=== PATIENT | female | born 1930 | race American Indian/Alaskan Native ===

== ENCOUNTER 2016-07-09 13:25 | Emergency (ER) | payer MEDICARE ==
--- NOTE | 2016-07-09 14:23 | C.PDOC ---
History Of Present Illness A 85 year old female c/o new onset of lower gastrointestinal bleeding 2 days ago. Patient notes bright red blood per rectal 2 days ago with no stool, no associated abdominal pain, rectal pain, or external hemorrhoids. Patient reports no BRBPR yesterday and took OTC laxative and mg citrate. Patient notes having recurring BRBPR with brown stool this morning denying abdominal pain, rectal pain, peptic ulcer disease, or colitis. Patient is currently asymptomatic denying fever, chills, nausea, vomiting, trauma, vaginal bleeding or discharge. Patient is S/P ABx finished 3 days ago. Patient PMD advised her to come on 07/14 but patient notes "But i thought it was hemorrhoids so i thought it would go away". NEW ONSET LGIB SINCE 07/07. PS BRBPR 2 DAYS AGO, NO STOOL. NO ASSOC ABD PAIN, RECTAL PAIN. HO EXT HEMORRHOIDS. NO BRBPR YEST, TOOK OTC LAXATIVE AND MG CITRATE. TODAY RECUR BRBPR THIS MORNING W BROWN STOOL. NO ASSOC ABD, RECTAL PAIN. NO HO PUD, COLITIS. CURRENTLY ASYMPT. S/P ABX FINISHED 07/06 FOR "FLU". PS PMD ADVISED HER TO COME ON 07/14 "BUT I THOUGHT IT WAS HEMORRHOIDS SO I THOUGHT IT WOULD GO AWAY" EXAM NAD NONTOXIC HEENT NO PALLOR ABD NEG RECTAL +EXT HEMORRHOID NONTHROMBOSED, NONTEND. NO STOOL IN VAULT. NO GROSS BLODD REMAINDER NEG Time Seen by Provider: 07/09/16 13:58 Chief Complaint (Nursing): GI Problem History Per: Patient History/Exam Limitations: no limitations Onset/Duration Of Symptoms: Days Current Symptoms Are (Timing): Still Present Severity: Mild Associated Symptoms: Hematemesis. denies: Nausea, Vomiting Past Medical History Reviewed: Historical Data, Nursing Documentation, Vital Signs Vital Signs: Last Vital Signs Temp 98 F 07/09/16 15:45 Pulse 79 07/09/16 15:45 Resp 18 07/09/16 15:45 BP 190/75 H 07/09/16 15:45 Pulse Ox 99 07/09/16 15:45 - Medical History PMH: HTN, Hypercholesterolemia Surgical History: Appendectomy, Tonsillectomy Family History: States: Unknown Family Hx - Social History Hx Alcohol Use: No Hx Substance Use: No - Immunization History Hx Tetanus Toxoid Vaccination: Yes Hx Influenza Vaccination: Yes Hx Pneumococcal Vaccination: No Review Of Systems Except As Marked, All Systems Reviewed And Found Negative. Constitutional: Negative for: Fever, Chills, Other (Trauma) Gastrointestinal: Positive for: Other (BRBPR. GI bleeding.). Negative for: Nausea, Vomiting, Abdominal Pain, Rectal Pain Genitourinary: Negative for: Vaginal Discharge, Vaginal Bleeding Physical Exam - Physical Exam Appears: Non-toxic, No Acute Distress Skin: Warm, Dry, No Pale Head: Atraumatic, Normacephalic Eye(s): bilateral: Normal Inspection, PERRL, EOMI Cardiovascular: Rhythm Regular, No Murmur Respiratory: Normal Breath Sounds, No Rales, No Rhonchi, No Wheezing Gastrointestinal/Abdominal: Soft, No Tenderness Rectal: Hemorrhoids (+ External hemorrhoids, non-thrombosed. non-tenderness), No Tenderness, Other (No stool in vault. No gross bleeding) Neurological/Psych: Oriented x3, Normal Speech, Normal Cognition, No Other (No focal deficit) ED Course And Treatment - Laboratory Results Result Diagrams: 07/09/16 14:35 07/09/16 14:35 ECG: Interpreted By Tn ECG Rhythm: R BBB Interpretation Of ECG: TWI III, AVF, VS-V6 O2 Sat by Pulse Oximetry: 99 (RA) Pulse Ox Interpretation: Normal Reevaluation Time: 15:40 Reassessment Condition: Unchanged (NO RECUR LGIB SINCE PRIOR EVAL. VSS. APEPARS COMFORTABLE. AGREES W DC PLAN, FU OFFICE) - Physician Consult Information Time Consulting Physician Contacted: 15:39 Physician Contacted: Alondra Hernandez Outcome Of Conversation: AWARE OF ER FINDINGS. WILL FU OFFICE 07/13. Medical Decision Making Medical Decision Making: Plans: -EKG -Blood labs -IV fluids -Serology -Reassess and disposition Disposition Counseled Patient/Family Regarding: Studies Performed, Diagnosis, Need For Followup - Disposition Referrals: Alondra Hernandez MD [Staff Provider] - Disposition: HOME/ ROUTINE Disposition Time: 15:40 Condition: GOOD Instructions: Hemorrhoids (ED), Rectal Bleeding (ED) - Clinical Impression Clinical Impression: Rectal bleed, Hemorrhoids - Scribe Statement The provider has reviewed the documentation as recorded by the Scribe Wilfredo martinez All medical record entries made by the Scribe were at my direction and personally dictated by me. I have reviewed the chart and agree that the record accurately reflects my personal performance of the history, physical exam, medical decision making, and the department course for this patient. I have also personally directed, reviewed, and agree with the discharge instructions and disposition.
[2016-07-09 14:39] LABS: BASO % 0.5 % (0.0-2.0); EOS # 0.1 K/uL (0.0-0.7); EOS % 1.2 % (0.0-4.0); LYMPH % 22.7 % (20.0-40.0); MEAN CELL VOLUME 76.6 fL (81.0-99.0); MEAN CORPUSCULAR HEMOGLOBIN 24.4 pg (27.0-31.0); MEAN CORPUSCULAR HGB CONC 31.8 g/dL (33.0-37.0); MEAN PLATELET VOLUME 8.9 fL (7.2-11.7); MONO % 10.7 % (0.0-10.0); NRBC % 0.1 % (0.0-2.0); WHITE BLOOD COUNT 8.9 K/uL (4.8-10.8)
[2016-07-09 14:40] LABS: URINE BILIRUBIN NEGATIVE (NEGATIVE); URINE COLOR Colorless (YELLOW); URINE GLUCOSE (UA) NORMAL (Normal); URINE KETONE NEGATIVE (NEGATIVE); URINE LEUKOCYTE ESTERASE NEG Leu/uL (Negative); URINE PROTEIN NEGATIVE (NEGATIVE); URINE UROBILINOGEN NORMAL mg/dL (0.2-1.0); WBC URINE 1 /hpf (0-5)
[2016-07-09 14:54] VITALS: BP 190/75
[2016-07-09 14:54] LABS: CHLORIDE 102 mmol/L (98-107); POTASSIUM 3.6 mmol/L (3.6-5.2); SODIUM 142 mmol/L (132-148)
[2016-07-09 14:54] LABS: URINE BLOOD TRACE (NEGATIVE)
[2016-07-09 14:56] LABS: AST/SGOT 40 U/L (14-36); BILIRUBIN,TOTAL 0.7 mg/dL (0.2-1.3); CARBON DIOXIDE 31 mmol/L (22-30); GFR AFRICAN-AMERICAN > 60
[2016-07-09 14:57] LABS: ALB/GLOB RATIO 1.2 (1.0-2.1); ALKALINE PHOSPHATASE 78 U/L (38-126); ALT/SGPT 36 U/L (9-52); BLOOD UREA NITROGEN 12 mg/dL (7-17); CALCIUM 8.4 mg/dl (8.6-10.4); GLUCOSE,RANDOM 107 mg/dL (65-105); TOTAL PROTEIN 7.4 g/dL (6.3-8.3)
--- NOTE | 2016-07-09 15:11 | RAD ---
PROCEDURE: CHEST RADIOGRAPH, 1 VIEW portable study 14:50. HISTORY: GI Bleeding COMPARISON: 06/23/2012. FINDINGS: LUNGS: Clear. PLEURA: No pneumothorax or pleural fluid seen. CARDIOVASCULAR: Cardiomegaly. No evidence of acute, significant cardiovascular disease. OSSEOUS STRUCTURES: No significant abnormalities. VISUALIZED UPPER ABDOMEN: Normal. OTHER FINDINGS: None. IMPRESSION: No active disease. No acute/significant interval changes.
[2016-07-09 15:29] VITALS: O2SAT 99
[2016-07-09 15:45] VITALS: PULSE 79; RESP 18; TEMP 98
--- NOTE | 2016-07-12 07:43 | CARD ---
APPROVED REPORT EKG Measurement Heart [id number] <Conclusion> Wide QRS rhythm with premature ventricular complexes or fusion complexes Right bundle branch block T wave abnormality, consider inferolateral ischemia Abnormal ECG
== END 2016-07-09 15:47 | disposition home or self-care (01) ==
LOC: EDBD 13:25 → C.ER 13:25
DX: K62.5 Hemorrhage of anus and rectum (principal); K64.4 Residual hemorrhoidal skin tags

== ENCOUNTER 2016-07-10 14:21 | Inpatient (IN) | payer MEDICARE, OTHER ==
--- NOTE | 2016-07-10 15:12 | C.PDOC ---
History Of Present Illness 85-year-old female, PMHx includes Hypertension and Hypercholesterolemia, presents to the emergency department with complaints of GI bleed. Patient states she has been experiencing recurring GI bleed since 07/07. Patient notes she was seen in ED yesterday, and discharged with outpatient f/u, but returns today, because bleeding has worsened/become more frequent and is associated with lower abdominal cramping. Patient denies nausea/vomiting. States she called her doctor, who referred her to the ED for further evaluation and admission. Time Seen by Provider: 07/10/16 14:40 Chief Complaint (Nursing): GI Problem History Per: Patient History/Exam Limitations: no limitations Past Medical History Reviewed: Historical Data, Nursing Documentation, Vital Signs Vital Signs: Last Vital Signs Temp 98.1 F 07/10/16 14:36 Pulse 83 07/10/16 14:36 Resp 16 07/10/16 14:36 BP 220/101 H 07/10/16 14:36 Pulse Ox 99 07/10/16 15:49 - Medical History PMH: HTN, Hypercholesterolemia Surgical History: Appendectomy, Tonsillectomy Family History: States: Unknown Family Hx - Social History Hx Alcohol Use: No Hx Substance Use: No - Immunization History Hx Tetanus Toxoid Vaccination: Yes Hx Influenza Vaccination: Yes Hx Pneumococcal Vaccination: No Review Of Systems Except As Marked, All Systems Reviewed And Found Negative. Constitutional: Negative for: Fever, Chills Cardiovascular: Negative for: Chest Pain, Palpitations Respiratory: Negative for: Shortness of Breath Gastrointestinal: Positive for: Abdominal Pain (Cramping), Hematochezia. Negative for: Nausea, Vomiting, Rectal Pain Skin: Negative for: Rash Neurological: Negative for: Weakness, Numbness, Headache, Dizziness Physical Exam - Physical Exam Appears: Non-toxic, No Acute Distress Skin: Warm, Dry, No Pale, No Rash Head: Atraumatic, Normacephalic Eye(s): bilateral: Normal Inspection, PERRL Nose: Normal Oral Mucosa: Moist Lips: Normal Appearing Neck: Normal ROM Chest: Symmetrical Cardiovascular: Rhythm Regular Respiratory: Normal Breath Sounds, No Accessory Muscle Use Gastrointestinal/Abdominal: Soft, No Tenderness Extremity: Normal ROM Neurological/Psych: Oriented x3, Normal Speech ED Course And Treatment O2 Sat by Pulse Oximetry: 99 Progress - Re-Evaluation Re-evaluation Note: 07/10/16 15:22 D/W PMD: AWARE OF ER FINDINGS. UNABLE TO ADMIT PT DUE TO BEING AWARE, REQUESTS ADMISSION TO HOSP D/W DR CONNER. STATES TO ADMIT MED DIRECTOR INTERNAL COMMUNICATIONS D/W DR Dl RYAN: WILL ADMIT - Data Reviewed Data Reviewed: Lab, Old records Medical Decision Making Medical Decision Making: Impression Recurring GI Bleed Prior Visits Notes and records from previous visits were reviewed. Patient seen and evaluated in ED for same complaint yesterday. Patients labs were WNL, and she was discharged for outpatient f/u with PMD in office/asked to return for any new or worsening symptoms. Plan: * Type and Screen * BMP * CBC * Stool Culture * C Diff Toxin AB, Fecal Leukocytes * Reassess and Disposition Consult Case discussed w/ Dr Hernandez, [facility] to admit patient to hospitalists service. Disposition Counseled Patient/Family Regarding: Studies Performed, Diagnosis - Disposition Disposition: HOSPITALIZED Disposition Time: 15:25 Condition: STABLE - POA Present On Arrival: None - Clinical Impression Clinical Impression: GI bleed - Scribe Statement The provider has reviewed the documentation as recorded by the Patrick Cantu All medical record entries made by the Indyibe were at my direction and personally dictated by me. I have reviewed the chart and agree that the record accurately reflects my personal performance of the history, physical exam, medical decision making, and the department course for this patient. I have also personally directed, reviewed, and agree with the discharge instructions and disposition. Decision To Admit - Pt Status Changed To: Hospital Disposition Of: Inpatient - Admit Certification Admit to Inpatient:: After my assessment, the patient will require hospitalization for at least two midnights. This is because of the severity of symptoms shown, intensity of services needed, and/or the medical risk in this patient being treated as an outpatient. - InPatient: Physician Admission Certification: I certify that this patient requires 2 or more midnights of care for the following reason:: SEE NOTE - . Bed Request Type: Telemetry Admitting Physician: Anjum Ryan Patient Diagnosis: GI bleed
[2016-07-10 16:10] LABS: CHLORIDE 100 mmol/L (98-107); SODIUM 142 mmol/L (132-148)
[2016-07-10 16:11] LABS: POTASSIUM 3.7 mmol/L (3.6-5.2)
[2016-07-10 16:13] LABS: CARBON DIOXIDE 30 mmol/L (22-30); GFR AFRICAN-AMERICAN > 60
[2016-07-10 16:14] LABS: BLOOD UREA NITROGEN 13 mg/dL (7-17); CALCIUM 8.1 mg/dl (8.6-10.4); GLUCOSE,RANDOM 118 mg/dL (65-105)
[2016-07-10 16:20] LABS: BASO % 0.6 % (0.0-2.0); EOS # 0.1 K/uL (0.0-0.7); EOS % 1.6 % (0.0-4.0); HEMATOCRIT 38.5 % (34.0-47.0); LYMPH # 2.3 K/uL (1.0-4.3); LYMPH % 33.5 % (20.0-40.0); MEAN CELL VOLUME 76.2 fL (81.0-99.0); MEAN CORPUSCULAR HEMOGLOBIN 24.3 pg (27.0-31.0); MEAN CORPUSCULAR HGB CONC 31.8 g/dL (33.0-37.0); MEAN PLATELET VOLUME 9.3 fL (7.2-11.7); MONO # 0.9 K/uL (0.0-0.8); MONO % 12.6 % (0.0-10.0); NRBC % 0.1 % (0.0-2.0); RED CELL DISTRIBUTION WIDTH 16.6 % (11.5-14.5); WHITE BLOOD COUNT 6.8 K/uL (4.8-10.8)
[2016-07-10] MEDS ORDERED: Metoprolol Succinate 50 mg XL Tab PO STA (19:04)
[2016-07-10] MEDS ORDERED: Metoprolol Succinate 50 mg XL Tab PO ONE (19:20)
--- NOTE | 2016-07-10 20:42 | CP.PCM.HP ---
History of Present Illness - History of Present Illness History of Present Illness: 35 years old female patient with past medical history of hypertension hyperlipidemia presented to the emergency department with GI bleeding that is recurring since last few days. Patient presented with similar complaints yesterday and discharge with outpatient follow-up but today the bleeding has worsened and also having cramping pain in the lower abdomen. No fever nausea vomiting No shortness of breath, palpitation, dizziness Present on Admission - Present on Admission Any Indicators Present on Admission: No Past Patient History - Infectious Disease Hx of Infectious Diseases: None - Past Social History Smoking Status: Never Smoked - CARDIAC Hx Hypercholesterolemia: Yes Hx Hypertension: Yes - ENDOCRINE/METABOLIC Other/Comment: "OVERACTIVE THYROID TREATED WITH RADIATION" - PSYCHIATRIC Hx Substance Use: No - SURGICAL HISTORY Hx Appendectomy: Yes Hx Tonsillectomy: Yes - ANESTHESIA Hx Anesthesia: Yes Hx Anesthesia Reactions: No Meds Home Medications: Home Medication List Medication Instructions Recorded Confirmed Type Metronidazole [Flagyl] 500 mg PO Q8 #15 tab 07/15/16 Rx Potassium Chloride 20 meq PO DAILY #2 tablet.er 07/15/16 Rx Allergies/Adverse Reactions: Allergies Allergy/AdvReac Type Severity Reaction Status Date / Time diphenhydramine Allergy SWELLING Verified 07/10/16 14:35 [From Benadryl] Penicillins Allergy SWELLING Verified 07/10/16 14:35 Results - Vital Signs Recent Vital Signs: Last Vital Signs Temp 98.1 F 07/10/16 14:36 Pulse 68 07/10/16 20:09 Resp 20 07/10/16 20:09 BP 189/57 H 07/10/16 20:09 Pulse Ox 100 07/10/16 20:09 - Labs Result Diagrams: 07/13/16 06:08 07/15/16 14:14 Labs: Laboratory Results - last 24 hr 07/10/16 07/10/16 07/10/16 15:59 15:59 17:00 WBC 6.8 RBC 5.05 Hgb 12.3 Hct 38.5 MCV 76.2 L MCH 24.3 L MCHC 31.8 L RDW 16.6 H Plt Count 161 MPV 9.3 Neut % (Auto) 51.7 Lymph % (Auto) 33.5 [place] % (Auto) 12.6 H Eos % (Auto) 1.6 Baso % (Auto) 0.6 Neut # 3.5 Lymph # 2.3 [place] # 0.9 H Eos # 0.1 Baso # 0.0 Sodium 142 Potassium 3.7 Chloride 100 Carbon Dioxide 30 Anion Gap 15 BUN 13 Creatinine 0.9 Est GFR ( Amer) > 60 Est GFR (Non-Af Amer) 60 Random Glucose 118 H Calcium 8.1 L Blood Type O POSITIVE Antibody Screen Negative Assessment & Plan (1) Clostridium difficile colitis Status: Acute (2) Clostridium difficile colitis Status: Acute (3) GI bleed Status: Acute (4) Hemorrhoids Status: Acute (5) Rectal bleed Status: Acute - Assessment and Plan (Free Text) Plan: cbc cmp protnix will not give lovenox scd gi consult hydralazine prn hctz 25mg po daily an dtoprol
--- NOTE | 2016-07-11 08:04 | CP.PCM.CON ---
<Vonda Hagen - Last Filed: 07/11/16 17:15> History of Present Illness - History of Present Illness History of Present Illness: Gastroenterology Fellow/PGY4 Consult Note 85 year old female with history of Hypertension, Hyperlipidemia, Constipation, and Hemorrhoids presenting with concern of red blood in stool. Patient describes going to [place] via car ride for one week with change in diet to low fiber and water intake. She notes on the drive back that her hemorrhoids were irritated and uncomfortable as she had not had a bowel movement for a few days during the trip. She took antibiotics for five days after her return for "pneumonia". She took Mg citrate and Dulcolax due to not having a bowel movement for four days. She describes straining with hard stools leading to bright red blood on the stool and moderate amount mixed in the water causing a pink hue. She notes constipation (bowel habit every 3-4 days) with hemorrhoids for the last ten to fifteen years, chronic laxative use, and intermittent episodes of bright red blood in her stool. For the last three days, notes twice daily loose and soft bowel movements with incontinence since the laxative with second recurrence of small amount of blood in formed stool being yesterday. She contacted her PCP and was instructed to present to ER. She notes a loose bowel movement without blood since presentation and recurrent episode during exam. Associated belching, bloating, flatulence, and abdominal cramps that resolve after bowel movement. Denies nausea, heartburn, indigestion, melena, hematemesis , dysphagia, odynophagia, unintentional weight loss. Prior colonoscopy 9-10 years ago endorsed to be normal with hemorrhoids. Of note, patient endorses compliance to antihypertensive mediations and PCP visits. Endorsed average BP 140/60-70s. Notes elevated BP with stress. Family- denies colon cancer Social- denies tobacco, alcohol, illicit drug use Surgery- appendectomy, tonsillectomy, right knee replacement, radioactive iodine for Hyperthyroidism Review of Systems - Review of Systems Review of Systems: A 12-point review of systems negative except for as above Past Patient History - Infectious Disease Hx of Infectious Diseases: None - Past Medical History & Family History Past Medical History?: Yes - Past Social History Smoking Status: Never Smoked - CARDIAC Hx Cardiac Disorders: Yes Hx Hypercholesterolemia: Yes Hx Hypertension: Yes - PULMONARY Hx Respiratory Disorders: No - NEUROLOGICAL Hx Neurological Disorder: No - HEENT Hx HEENT Problems: Yes Other/Comment: EYE GLASSES FOR READING - RENAL Hx Chronic Kidney Disease: No - ENDOCRINE/METABOLIC Hx Endocrine Disorders: Yes Other/Comment: "OVERACTIVE THYROID TREATED WITH RADIATION" - HEMATOLOGICAL/ONCOLOGICAL Hx Blood Disorders: No - INTEGUMENTARY Hx Dermatological Problems: No - MUSCULOSKELETAL/RHEUMATOLOGICAL Hx Musculoskeletal Disorders: Yes Other/Comment: L KNEE REPALCEMENT - GASTROINTESTINAL Hx Gastrointestinal Disorders: No - GENITOURINARY/GYNECOLOGICAL Hx Genitourinary Disorders: No - PSYCHIATRIC Hx Psychophysiologic Disorder: No - SURGICAL HISTORY Hx Surgeries: Yes Hx Appendectomy: Yes Hx Tonsillectomy: Yes Other/Comment: L KNEE REPLACEMENT - ANESTHESIA Hx Anesthesia: Yes Hx Anesthesia Reactions: No Hx Malignant Hyperthermia: No Has any member of the family had a problem w/ anesthesia?: No Meds Allergies/Adverse Reactions: Allergies Allergy/AdvReac Type Severity Reaction Status Date / Time diphenhydramine Allergy SWELLING Verified 07/10/16 14:35 [From Benadryl] Penicillins Allergy SWELLING Verified 07/10/16 14:35 - Medications Medications: Current Medications Metoprolol Succinate (Toprol Xl) 50 mg PO DAILY [facility] Pantoprazole Sodium (Protonix Ec Tab) 40 mg PO DAILY [facility] Rosuvastatin Calcium (Crestor) 20 mg PO HS [facility] Last Admin: 07/11/16 07:32 Dose: Not Given Physical Exam - Constitutional Appears: Non-toxic, No Acute Distress - Head Exam Head Exam: ATRAUMATIC, NORMOCEPHALIC - Eye Exam Eye Exam: EOMI, PERRL Pupil Exam: PERRL. absent: Miosis, Mydriatic - ENT Exam ENT Exam: Mucous Membranes Moist, Normal Oropharynx - Neck Exam Neck exam: Positive for: Full Rom, Normal Inspection - Respiratory Exam Respiratory Exam: Clear to Auscultation Bilateral. absent: Rales, Rhonchi, Wheezes - Cardiovascular Exam Cardiovascular Exam: RRR, +S1, +S2. absent: Gallop, Rubs - GI/Abdominal Exam GI & Abdominal Exam: Normal Bowel Sounds. absent: Distended, Firm, Guarding, Organomegaly, Rebound, Rigid, Tenderness - Rectal Exam Rectal Exam: Hemorrhoids, NORMAL INSPECTION. absent: Black Stool, Bloody Stool , Fecal Impaction Additional comments: large amount of semi-liquid light brown stool on alexis and rectal vault, no fecal impaction, no stool present on rectal exam, moderate internal hemorrhoids , Grade I-II on exam) - Extremities Exam Extremities exam: Positive for: full ROM. Negative for: pedal edema - Neurological Exam Neurological exam: Alert - Psychiatric Exam Psychiatric exam: Normal Affect, Normal Mood - Skin Skin Exam: Dry, Intact, Normal Color, Warm Results - Vital Signs Recent Vital Signs: Last Vital Signs Temp 98.3 F 07/11/16 00:04 Pulse 76 07/11/16 01:21 Resp 18 07/11/16 01:09 BP 113/73 07/11/16 00:04 Pulse Ox 99 07/11/16 01:09 - Labs Result Diagrams: 07/11/16 08:03 07/11/16 08:03 Labs: Laboratory Results - last 24 hr 07/10/16 07/10/16 07/10/16 15:59 15:59 17:00 WBC 6.8 RBC 5.05 Hgb 12.3 Hct 38.5 MCV 76.2 L MCH 24.3 L MCHC 31.8 L RDW 16.6 H Plt Count 161 MPV 9.3 Neut % (Auto) 51.7 Lymph % (Auto) 33.5 [place] % (Auto) 12.6 H Eos % (Auto) 1.6 Baso % (Auto) 0.6 Neut # 3.5 Lymph # 2.3 [place] # 0.9 H Eos # 0.1 Baso # 0.0 Sodium 142 Potassium 3.7 Chloride 100 Carbon Dioxide 30 Anion Gap 15 BUN 13 Creatinine 0.9 Est GFR ( Amer) > 60 Est GFR (Non-Af Amer) 60 Random Glucose 118 H Calcium 8.1 L Blood Type O POSITIVE Antibody Screen Negative Assessment & Plan - Assessment and Plan (Free Text) Assessment: 85 year old female with history of Hypertension, Hyperlipidemia, Constipation, and Hemorrhoids presenting with concern of bright red blood per rectum. ER visit for hematochezia on 07/07 with diagnosis of hemorrhoids, FOBT negative,and stable H/H. Repeat hematochezia 07/10 leading to ER presentation. Active treatment of hypertensive urgency and evaluation of possible GI bleed. Prior colonoscopy 9-10 years ago endorsed to be normal with hemorrhoids. Plan: >constipation with BRBPR secondary to hemorrhoids >light brown loose stool and hemorrhoids on rectal exam >no overt signs of GI blood loss >FOBT negative 07/07 >H/H 13.2/40.9 >counselled on increased fiber intake >ordered Anusol RC suppositories BID >recurrent episodes of stool incontinence -recent antibiotic one week prior >pending Cdiff, stool culture, fecal leukocytes >no indication for endoscopic evaluation <Nathalia Herrmann MD - Last Filed: 07/11/16 21:13> Meds - Medications Medications: Current Medications Amlodipine Besylate (Norvasc) 10 mg PO DAILY [facility] Last Admin: 07/11/16 09:23 Dose: 10 mg Hydrochlorothiazide (Hydrodiuril) 25 mg PO DAILY [facility] Last Admin: 07/11/16 09:23 Dose: 25 mg Hydrocortisone (Anusol-Hc) 25 mg RC BID [facility] Last Admin: 07/11/16 17:59 Dose: 25 mg Metronidazole (Flagyl) 500 mg in 100 mls @ 100 mls/hr IVPB Q8H [facility] Last Admin: 07/11/16 15:58 Dose: 100 mls/hr Metoprolol Succinate (Toprol Xl) 50 mg PO DAILY [facility] Last Admin: 07/11/16 10:28 Dose: 50 mg Pantoprazole Sodium (Protonix Ec Tab) 40 mg PO DAILY [facility] Last Admin: 07/11/16 09:23 Dose: 40 mg Pneumococcal Polyvalent Vaccine (Pneumovax 23 Vaccine) 0.5 ml IM .ONCE ONE Stop: 07/13/16 10:01 Rosuvastatin Calcium (Crestor) 20 mg PO [facility] Last Admin: 07/11/16 07:32 Dose: Not Given Vancomycin HCl (Vancocin (Oral Or Rectal Use)) 250 mg PO QID [facility] Last Admin: 07/11/16 17:36 Dose: 250 mg Results - Vital Signs Recent Vital Signs: Last Vital Signs Temp 98.8 F 07/11/16 20:00 Pulse 72 07/11/16 20:00 Resp 19 07/11/16 20:00 BP 170/90 H 07/11/16 20:00 Pulse Ox 100 07/11/16 20:00 - Labs Result Diagrams: 07/11/16 08:03 07/11/16 08:03 Labs: Laboratory Results - last 24 hr 07/11/16 07/11/16 07/11/16 08:03 08:03 08:03 WBC 10.2 RBC 5.39 H Hgb 13.2 Hct 40.9 MCV 75.8 L MCH 24.5 L MCHC 32.4 L RDW 16.5 H Plt Count 199 MPV 9.2 Neut % (Auto) 74.2 Lymph % (Auto) 14.0 L [place] % (Auto) 10.9 H Eos % (Auto) 0.4 Baso % (Auto) 0.5 Neut # 7.5 H Lymph # 1.4 [place] # 1.1 H Eos # 0.0 Baso # 0.1 PT 11.5 INR 1.0 Sodium 141 Potassium 3.6 Chloride 100 Carbon Dioxide 29 Anion Gap 16 BUN 10 Creatinine 0.8 Est GFR ( Amer) > 60 Est GFR (Non-Af Amer) > 60 Random Glucose 119 H Calcium 8.1 L Total Bilirubin 1.1 AST 46 H ALT 25 Alkaline Phosphatase 68 Total Protein 7.3 Albumin 3.9 Globulin 3.5 Albumin/Globulin Ratio 1.1 Attending/Attestation - Attestation I have personally seen and examined this patient.: Yes I have fully participated in the care of the patient.: Yes I have reviewed all pertinent clinical information: Yes Notes (Text): 07/11/16 21:11 Patient seen with GI fellow on rounds. This is a 85 year old female with history of Hypertension, Hyperlipidemia, Constipation, and Hemorrhoids presenting with concern of bright red blood per rectum and hypertensive urgency. FOBT negative,and stable H/H. Prior colonoscopy 9-10 years ago endorsed to be normal with hemorrhoids. No s/s of rectal bleeding since admission. Will aggressively treat constipation. Bowel regimen. No endoscopic intervention. Discussed with MICU and daughter.
[2016-07-11 08:11] LABS: BASO # 0.1 K/uL (0.0-0.2); BASO % 0.5 % (0.0-2.0); EOS % 0.4 % (0.0-4.0); HEMATOCRIT 40.9 % (34.0-47.0); LYMPH # 1.4 K/uL (1.0-4.3); MEAN CELL VOLUME 75.8 fL (81.0-99.0); MEAN CORPUSCULAR HEMOGLOBIN 24.5 pg (27.0-31.0); MEAN CORPUSCULAR HGB CONC 32.4 g/dL (33.0-37.0); MEAN PLATELET VOLUME 9.2 fL (7.2-11.7); MONO # 1.1 K/uL (0.0-0.8); MONO % 10.9 % (0.0-10.0); NRBC % 0.1 % (0.0-2.0); RED CELL DISTRIBUTION WIDTH 16.5 % (11.5-14.5); WHITE BLOOD COUNT 10.2 K/uL (4.8-10.8)
[2016-07-11 08:23] LABS: CHLORIDE 100 mmol/L (98-107); POTASSIUM 3.6 mmol/L (3.6-5.2); SODIUM 141 mmol/L (132-148)
[2016-07-11 08:25] LABS: ALB/GLOB RATIO 1.1 (1.0-2.1); ALKALINE PHOSPHATASE 68 U/L (38-126); AST/SGOT 46 U/L (14-36); BILIRUBIN,TOTAL 1.1 mg/dL (0.2-1.3); CARBON DIOXIDE 29 mmol/L (22-30); GFR AFRICAN-AMERICAN > 60; TOTAL PROTEIN 7.3 g/dL (6.3-8.3)
[2016-07-11 08:26] LABS: ALT/SGPT 25 U/L (9-52); BLOOD UREA NITROGEN 10 mg/dL (7-17); CALCIUM 8.1 mg/dl (8.6-10.4); GLUCOSE,RANDOM 119 mg/dL (65-105)
[2016-07-11] MEDS: Pantoprazole 40 mg EC Tab PO SCH (09:23)
[2016-07-11] MEDS: Metoprolol Succinate 50 mg XL Tab PO SCH (10:28)
[2016-07-11 12:40] LABS: C DIFF TOXIN A B POSITIVE (NEGATIVE)
[2016-07-11 13:44] LABS: FECAL LEUKOCYTES NEGATIVE (NEGATIVE)
--- NOTE | 2016-07-11 14:13 | CP.PCM.PN ---
Subjective - Date & Time of Evaluation Date of Evaluation: 07/11/16 Time of Evaluation: 16:40 - Subjective Subjective: clinically same Objective - Vital Signs/Intake and Output Vital Signs (last 24 hours): Temp Pulse Resp BP Pulse Ox 97.2 F L 64 21 163/55 H 100 07/11/16 12:00 07/11/16 12:00 07/11/16 12:00 07/11/16 12:00 07/11/16 12:00 Intake and Output: 07/11/16 07/11/16 06:59 18:59 Intake Total 118 250 Balance 118 250 - Medications Medications: Current Medications Amlodipine Besylate (Norvasc) 10 mg PO DAILY [facility] Last Admin: 07/11/16 09:23 Dose: 10 mg Hydrochlorothiazide (Hydrodiuril) 25 mg PO DAILY [facility] Last Admin: 07/11/16 09:23 Dose: 25 mg Hydrocortisone (Anusol-Hc) 25 mg RC BID [facility] Last Admin: 07/11/16 09:36 Dose: 25 mg Metoprolol Succinate (Toprol Xl) 50 mg PO DAILY [facility] Last Admin: 07/11/16 10:28 Dose: 50 mg Pantoprazole Sodium (Protonix Ec Tab) 40 mg PO DAILY [facility] Last Admin: 07/11/16 09:23 Dose: 40 mg Pneumococcal Polyvalent Vaccine (Pneumovax 23 Vaccine) 0.5 ml IM .ONCE ONE Stop: 07/13/16 10:01 Rosuvastatin Calcium (Crestor) 20 mg PO [facility] Last Admin: 07/11/16 07:32 Dose: Not Given - Labs Labs: 07/11/16 08:03 07/11/16 08:03 PT 11.5 SECONDS (9.7-12.2) 07/11/16 08:03 INR 1.0 07/11/16 08:03 - Constitutional Appears: Well - Head Exam Head Exam: ATRAUMATIC, NORMAL INSPECTION, NORMOCEPHALIC - Eye Exam Eye Exam: EOMI, Normal appearance, PERRL Pupil Exam: NORMAL ACCOMODATION, PERRL - ENT Exam ENT Exam: Mucous Membranes Moist, Normal Exam - Neck Exam Neck Exam: Full ROM, Normal Inspection. absent: Lymphadenopathy - Respiratory Exam Respiratory Exam: Decreased Breath Sounds - Cardiovascular Exam Cardiovascular Exam: REGULAR RHYTHM, +S1, +S2 - GI/Abdominal Exam GI & Abdominal Exam: Soft, Diminished Bowel Sounds - Rectal Exam Rectal Exam: Deferred Assessment and Plan (1) Clostridium difficile colitis Status: Acute (2) Clostridium difficile colitis Status: Acute (3) GI bleed Status: Acute (4) Hemorrhoids Status: Acute (5) Rectal bleed Status: Acute - Assessment and Plan (Free Text) Plan: Consult GI Consult ID Amlodipine Hydrodiuril Flagyl Toprol Vancomycin Protonix Crestor Stool culture pending
[2016-07-11] MEDS: metroNIDAZOLE IV 500 mg/100 ml 500 MG/100 ML BAG IVPB SCH ×2 (15:58→23:55)
[2016-07-11] MEDS: Vancomycin 125 MG/5 ML SOLN (ORAL/RECTAL) PO SCH ×2 (17:36→21:49)
[2016-07-12 06:11] LABS: BASO # 0.1 K/uL (0.0-0.2); BASO % 0.7 % (0.0-2.0); EOS # 0.2 K/uL (0.0-0.7); EOS % 2.3 % (0.0-4.0); HEMATOCRIT 37.6 % (34.0-47.0); LYMPH # 1.7 K/uL (1.0-4.3); LYMPH % 21.4 % (20.0-40.0); MEAN CELL VOLUME 75.6 fL (81.0-99.0); MEAN CORPUSCULAR HEMOGLOBIN 24.3 pg (27.0-31.0); MEAN CORPUSCULAR HGB CONC 32.1 g/dL (33.0-37.0); MEAN PLATELET VOLUME 8.9 fL (7.2-11.7); MONO # 1.1 K/uL (0.0-0.8); NRBC % 0.1 % (0.0-2.0); RED CELL DISTRIBUTION WIDTH 16.3 % (11.5-14.5)
[2016-07-12] MEDS: metroNIDAZOLE IV 500 mg/100 ml 500 MG/100 ML BAG IVPB SCH ×2 (08:05→16:18)
[2016-07-12] MEDS: Metoprolol Succinate 50 mg XL Tab PO SCH (09:51)
[2016-07-12] MEDS: Pantoprazole 40 mg EC Tab PO SCH (09:52)
[2016-07-12] MEDS: Vancomycin 125 MG/5 ML SOLN (ORAL/RECTAL) PO SCH ×4 (09:52→22:02)
--- NOTE | 2016-07-12 10:28 | CP.PCM.CON ---
History of Present Illness - History of Present Illness History of Present Illness: 85-year-old female, PMHx includes Hypertension and Hypercholesterolemia, presents to the emergency department with complaints of GI bleed. On admission stool sent for c diff came back + for antigen and toxin + Hx hemorrhoids started empirically on rx for c diff - Medical History Family- denies colon cancer Social- denies tobacco, alcohol, illicit drug use Surgery- appendectomy, tonsillectomy, right knee replacement, radioactive iodine for Hyperthyroidism PMH: HTN, Hypercholesterolemia Surgical History: Appendectomy, Tonsillectomy Family History: States: Unknown Family Hx Review of Systems - Review of Systems All systems: reviewed and no additional remarkable complaints except - Constitutional Constitutional: Anorexia, Malaise - EENT Eyes: absent: As Per HPI, Blind Spots, Blurred Vision, Change in Vision, Decreased Night Vision, Diplopia, Discharge, Dry Eye, Exophthalmos, Floaters, Irritation, Itchy Eyes, Loss of Peripheral Vision, Pain, Photophobia, Requires Corrective Lenses, Sees Flashes, Spots in Vision, Tunnel Vision, Other Visual Disturbances, Loss of Vision, Other Ears: absent: As Per HPI, Decreased Hearing, Ear Discharge, Ear Pain, Tinnitus, Abnormal Hearing, Disequilibrium, Dizziness, Other Nose/Mouth/Throat: absent: As Per HPI, Epistaxis, Nasal Congestion, Nasal Discharge, Nasal Obstruction, Nasal Trauma, Nose Pain, Post Nasal Drip, Sinus Pain, Sinus Pressure, Bleeding Gums, Change in Voice, Dental Pain, Dry Mouth, Dysphagia, Halitosis, Hoarsness, Lip Swelling, Mouth Lesions, Mouth Pain, Odynophagia, Sore Throat, Throat Swelling, Tongue Swelling, Facial Pain, Neck Pain, Neck Mass, Other - Breasts Breasts: absent: As Per HPI, Change in Shape, Mass, Pain, Nipple Discharge, Nipple Inversion, Skin Changes, Swelling, Other - Cardiovascular Cardiovascular: absent: As Per HPI, Acrocyanosis, Chest Pain, Chest Pain at Rest , Chest Pain with Activity, Claudication, Diaphoresis, Dyspnea, Dyspnea on Exertion, Edema, Irregular Heart Rhythm, Pain Radiating to Arm/Neck/Jaw, Leg Edema, Leg Ulcers, Lightheadedness, Orthopnea, Palpitations, Paroxysmal Nocturnal Dyspnea, Pedal Edema, Radiating Pain, Rapid Heart Rate, Slow Heart Rate, Syncope, Other - Respiratory Respiratory: absent: As Per HPI, Cough, Dyspnea, Hemoptysis, Dyspnea on Exertion , Wheezing, Snoring, Stridor, Pain on Inspiration, Chest Congestion, Excessive Mucous Production, Change in Mucous Color, Pain with Coughing, Other - Gastrointestinal Gastrointestinal: As Per HPI - Genitourinary Genitourinary: absent: As Per HPI, Change in Urinary Stream, Difficulty Urinating, Dysuria, Flank Pain, Hematuria, Pyuria, Nocturia, Urinary Incontinence, Urinary Frequency, Urinary Hesitance, Urinary Urgency, Voiding Freq/Small Amts, Freq UTI, Hx Renal/Bladder Calculi, Hx /Renal Surgery, Bladder Distension, Other - Reproductive: Female Reproductive:Female: absent: As Per HPI, Amenorrhea, Amenorrhea/ Control, Currently Menstual, Cycle <21 Days, Cycle >35 Days, Cycle Variable, Menses 1-7 Days, Menses >/= 8 Days, Menses Variable, Cycle > 4 Weeks Between, No Menses for 6 Months, Heavy Menses, Light Menses, Normal Menses, Spotting Between Cycles , S/P Hysterectomy, Menopausal, Post Menopausal, Premenarche, Abnormal Vaginal Bleeding, Dysmenorrhea, Dyspareunia, Genital Lesions, Genital Pruritis, Pelvic Pain, Prolapse Symptoms, Sexual Dysfunction, Vaginal Discharge, Vaginal Dryness , Vaginal Odor, Vaginal Pruritis, Other - Menstruation Menstruation: absent: As Per HPI, Amenorrhea, Amenorrhea/ Control, Currently Menstual, Cycle <21 Days, Cycle >35 Days, Cycle Variable, Menses 1-7 Days, Menses >/= 8 Days, Menses Variable, Cycle > 4 Weeks Between, No Menses for 6 Months, Heavy Menses, Light Menses, Normal Menses, Spotting Between Cycles , S/P Hysterectomy, Menopausal, Post Menopausal, Premenarche, Abnormal Vaginal Bleeding, Dysmenorrhea, Other - Musculoskeletal Musculoskeletal: absent: As Per HPI, Abnormal Gait, Arthralgias, Atrophy, Back Pain, Deformity, Joint Swelling, Limited Range of Motion, Loss of Height, Muscle Cramps, Muscle Weakness, Myalgias, Neck Pain, Numbness, Radiating Pain into Limb, Stiffness, Tingling, Other - Integumentary Integumentary: absent: As Per HPI, Acne, Alopecia, Bleeding Lesions, Change in Hair, Change in Nails, Change in Pigmentation, Changing Lesions, Dry Skin, Erythema, Furuncle, Hirsutism, Lesions, New Lesions, Non-Healing Lesions, Photosensitivity, Pruritus, Rash, Skin Pain, Skin Ulcer, Sores, Striae, Swelling , Unusual Bruising, Wounds, Jaundice, Other - Neurological Neurological: absent: As Per HPI, Abnormal Gait, Abnormal Hearing, Abnormal Movements, Abnormal Speech, Behavioral Changes, Burning Sensations, Confusion, Convulsions, Disequilibrium, Dizziness, Numbness, Focal Weakness, Frequent Falls , Headaches, Lack of Coordination, Loss of Vision, Memory Loss, Paresthesias, Radicular Pain, Restless Legs, Sensory Deficit, Syncope, Tingling, Tremor, Vertigo, Weakness, Other Visual Disturbances, Other - Psychiatric Psychiatric: absent: As Per HPI, Abnormal Sleep Pattern, Anhedonia, Anxiety, Auditory Hallucinations, Behavioral Changes, Change in Appetite, Change in Libido, Confusion, Depression, Difficulty Concentrating, Hallucinations, Homicidal Ideation, Hopelessness, Irritability, Memory Loss, Mood Swings, Panic Attacks, Paranoia, Suicidal Ideation, Visual Hallucinations, Tactile Hallucinations, Other - Endocrine Endocrine: absent: As Per HPI, Change in Body Appearance, Change in Libido, Cold Intolorance, Deepening of Voice, Excessive Sweating, Fatigue, Flushing, Heat Intolorance, Increase in Ring/Shoe/Hat Size, Palpitations, Polydipsia, Polyphagia, Polyuria, Other - Hematologic/Lymphatic Hematologic: absent: As Per HPI, Easy Bleeding, Easy Bruising, Lymphadenopathy, Other Past Patient History - Infectious Disease Hx of Infectious Diseases: None - Past Medical History & Family History Past Medical History?: Yes - Past Social History Smoking Status: Never Smoked - CARDIAC Hx Cardiac Disorders: Yes Hx Hypercholesterolemia: Yes Hx Hypertension: Yes - PULMONARY Hx Respiratory Disorders: No - NEUROLOGICAL Hx Neurological Disorder: No - HEENT Hx HEENT Problems: Yes Other/Comment: EYE GLASSES FOR READING - RENAL Hx Chronic Kidney Disease: No - ENDOCRINE/METABOLIC Hx Endocrine Disorders: Yes Other/Comment: "OVERACTIVE THYROID TREATED WITH RADIATION" - HEMATOLOGICAL/ONCOLOGICAL Hx Blood Disorders: No - INTEGUMENTARY Hx Dermatological Problems: No - MUSCULOSKELETAL/RHEUMATOLOGICAL Hx Musculoskeletal Disorders: Yes Other/Comment: L KNEE REPALCEMENT - GASTROINTESTINAL Hx Gastrointestinal Disorders: No - GENITOURINARY/GYNECOLOGICAL Hx Genitourinary Disorders: No - PSYCHIATRIC Hx Psychophysiologic Disorder: No - SURGICAL HISTORY Hx Surgeries: Yes Hx Appendectomy: Yes Hx Tonsillectomy: Yes Other/Comment: L KNEE REPLACEMENT - ANESTHESIA Hx Anesthesia: Yes Hx Anesthesia Reactions: No Hx Malignant Hyperthermia: No Has any member of the family had a problem w/ anesthesia?: No Meds Allergies/Adverse Reactions: Allergies Allergy/AdvReac Type Severity Reaction Status Date / Time diphenhydramine Allergy SWELLING Verified 07/10/16 14:35 [From Benadryl] Penicillins Allergy SWELLING Verified 07/10/16 14:35 - Medications Medications: Current Medications Amlodipine Besylate (Norvasc) 10 mg PO DAILY [facility] Last Admin: 07/12/16 09:51 Dose: 10 mg Hydrochlorothiazide (Hydrodiuril) 25 mg PO DAILY [facility] Last Admin: 07/11/16 09:23 Dose: 25 mg Hydrocortisone (Anusol-Hc) 25 mg RC BID [facility] Last Admin: 07/12/16 10:19 Dose: 25 mg Metronidazole (Flagyl) 500 mg in 100 mls @ 100 mls/hr IVPB Q8H [facility] Last Admin: 07/12/16 08:05 Dose: 100 mls/hr Metoprolol Succinate (Toprol Xl) 50 mg PO DAILY [facility] Last Admin: 07/12/16 09:51 Dose: 50 mg Pantoprazole Sodium (Protonix Ec Tab) 40 mg PO DAILY [facility] Last Admin: 07/12/16 09:52 Dose: 40 mg Pneumococcal Polyvalent Vaccine (Pneumovax 23 Vaccine) 0.5 ml IM .ONCE ONE Stop: 07/13/16 10:01 Rosuvastatin Calcium (Crestor) 20 mg PO HS [facility] Last Admin: 07/11/16 21:50 Dose: 20 mg Vancomycin HCl (Vancocin (Oral Or Rectal Use)) 250 mg PO QID [facility] Last Admin: 07/12/16 09:52 Dose: 250 mg Physical Exam - Constitutional Appears: Non-toxic, Chronically Ill - Head Exam Head Exam: NORMOCEPHALIC - Eye Exam Eye Exam: PERRL. absent: Scleral icterus - ENT Exam ENT Exam: Mucous Membranes Dry, Normal External Ear Exam, Normal Oropharynx - Neck Exam Neck exam: Negative for: Lymphadenopathy, Thyromegaly - Respiratory Exam Respiratory Exam: Decreased Breath Sounds, Clear to Auscultation Bilateral - Cardiovascular Exam Cardiovascular Exam: REGULAR RHYTHM, +S1, +S2 - GI/Abdominal Exam GI & Abdominal Exam: Diminished Bowel Sounds, Soft. absent: Tenderness - Rectal Exam Rectal Exam: Deferred - Exam Exam: NORMAL INSPECTION - Extremities Exam Extremities exam: Negative for: calf tenderness, pedal edema - Back Exam Back exam: absent: CVA tenderness (L), CVA tenderness (R) - Neurological Exam Neurological exam: Alert, CN II-XII Intact, Oriented x3, Reflexes Normal - Psychiatric Exam Psychiatric exam: Normal Mood - Skin Skin Exam: Dry, Intact Results - Vital Signs Recent Vital Signs: Last Vital Signs Temp 97.5 F L 07/12/16 08:00 Pulse 64 07/12/16 09:43 Resp 21 07/12/16 09:43 BP 143/61 07/12/16 09:43 Pulse Ox 98 07/12/16 07:42 - Labs Result Diagrams: 07/12/16 06:04 07/11/16 08:03 Labs: Laboratory Results - last 24 hr 07/12/16 06:04 WBC 8.0 RBC 4.98 Hgb 12.1 Hct 37.6 MCV 75.6 L MCH 24.3 L MCHC 32.1 L RDW 16.3 H Plt Count 178 MPV 8.9 Neut % (Auto) 61.6 Lymph % (Auto) 21.4 Butler % (Auto) 14.0 H Eos % (Auto) 2.3 Baso % (Auto) 0.7 Neut # 4.9 Lymph # 1.7 Butler # 1.1 H Eos # 0.2 Baso # 0.1 Assessment & Plan (1) Hemorrhoids Status: Acute (2) Rectal bleed Status: Acute - Assessment and Plan (Free Text) Assessment: + cd iff toxin and antigrn consider PCR test GI on board cont rx
--- NOTE | 2016-07-12 16:21 | CP.PCM.PN ---
Subjective - Date & Time of Evaluation Date of Evaluation: 07/12/16 Time of Evaluation: 17:00 - Subjective Subjective: clinically same Objective - Vital Signs/Intake and Output Vital Signs (last 24 hours): Temp Pulse Resp BP Pulse Ox 97.0 F L 64 24 147/55 L 98 07/12/16 12:56 07/12/16 14:00 07/12/16 14:00 07/12/16 13:43 07/12/16 12:00 Intake and Output: 07/12/16 07/12/16 06:59 18:59 Intake Total 240 100 Output Total 400 Balance -160 100 - Medications Medications: Current Medications Acetaminophen (Tylenol 325mg Tab) 650 mg PO Q6 PRN PRN Reason: Pain, Mild (1-3) Last Admin: 07/12/16 11:56 Dose: 650 mg Amlodipine Besylate (Norvasc) 10 mg PO DAILY [facility] Last Admin: 07/12/16 09:51 Dose: 10 mg Hydrochlorothiazide (Hydrodiuril) 25 mg PO DAILY [facility] Last Admin: 07/12/16 10:43 Dose: 25 mg Hydrocortisone (Anusol-Hc) 25 mg RC BID [facility] Last Admin: 07/12/16 10:19 Dose: 25 mg Metronidazole (Flagyl) 500 mg in 100 mls @ 100 mls/hr IVPB Q8H [facility] Last Admin: 07/12/16 16:18 Dose: 100 mls/hr Metoprolol Succinate (Toprol Xl) 50 mg PO DAILY [facility] Last Admin: 07/12/16 09:51 Dose: 50 mg Pantoprazole Sodium (Protonix Ec Tab) 40 mg PO DAILY [facility] Last Admin: 07/12/16 09:52 Dose: 40 mg Pneumococcal Polyvalent Vaccine (Pneumovax 23 Vaccine) 0.5 ml IM .ONCE ONE Stop: 07/13/16 10:01 Rosuvastatin Calcium (Crestor) 20 mg PO HS [facility] Last Admin: 07/11/16 21:50 Dose: 20 mg Vancomycin HCl (Vancocin (Oral Or Rectal Use)) 250 mg PO QID [facility] Last Admin: 07/12/16 13:16 Dose: 250 mg - Labs Labs: 07/12/16 06:04 07/11/16 08:03 PT 11.5 SECONDS (9.7-12.2) 07/11/16 08:03 INR 1.0 07/11/16 08:03 - Constitutional Appears: Well - Head Exam Head Exam: ATRAUMATIC, NORMAL INSPECTION, NORMOCEPHALIC - Eye Exam Eye Exam: EOMI, Normal appearance, PERRL Pupil Exam: NORMAL ACCOMODATION, PERRL - ENT Exam ENT Exam: Mucous Membranes Moist, Normal Exam - Neck Exam Neck Exam: Full ROM, Normal Inspection. absent: Lymphadenopathy - Respiratory Exam Respiratory Exam: Decreased Breath Sounds - Cardiovascular Exam Cardiovascular Exam: REGULAR RHYTHM, +S1, +S2 - GI/Abdominal Exam GI & Abdominal Exam: Soft, Diminished Bowel Sounds - Rectal Exam Rectal Exam: Deferred Assessment and Plan (1) Clostridium difficile colitis Status: Acute (2) Clostridium difficile colitis Status: Acute (3) GI bleed Status: Acute (4) Hemorrhoids Status: Acute (5) Rectal bleed Status: Acute - Assessment and Plan (Free Text) Plan: Follow-up ID Follow-up GI Stool culture positive for C diff Continue Flagyl Continue vancomycin Protonix
[2016-07-13] MEDS: metroNIDAZOLE IV 500 mg/100 ml 500 MG/100 ML BAG IVPB SCH ×4 (00:24→23:53)
[2016-07-13 06:16] LABS: BASO % 0.6 % (0.0-2.0); EOS # 0.2 K/uL (0.0-0.7); EOS % 2.2 % (0.0-4.0); HEMATOCRIT 36.1 % (34.0-47.0); LYMPH % 26.1 % (20.0-40.0); MEAN CELL VOLUME 75.7 fL (81.0-99.0); MEAN CORPUSCULAR HEMOGLOBIN 24.3 pg (27.0-31.0); MEAN CORPUSCULAR HGB CONC 32.2 g/dL (33.0-37.0); MEAN PLATELET VOLUME 8.8 fL (7.2-11.7); MONO # 1.3 K/uL (0.0-0.8); MONO % 17.1 % (0.0-10.0); NRBC % 0.1 % (0.0-2.0); WHITE BLOOD COUNT 7.6 K/uL (4.8-10.8)
[2016-07-13] MEDS: Vancomycin 125 MG/5 ML SOLN (ORAL/RECTAL) PO SCH ×4 (09:28→21:53)
[2016-07-13] MEDS: Pantoprazole 40 mg EC Tab PO SCH (09:28)
[2016-07-13] MEDS: Metoprolol Succinate 50 mg XL Tab PO SCH (09:28)
[2016-07-13] MEDS: Pneumococcal 23-Valent Vaccine IM ONE ×2 (09:29→10:05)
--- NOTE | 2016-07-13 16:10 | CP.PCM.PN ---
Subjective - Date & Time of Evaluation Date of Evaluation: 07/13/16 Time of Evaluation: 10:00 - Subjective Subjective: ADMITTED WITH C DIFF WAS TAKING CIPRO FOR THE FLU X 7 DAYS DEVGELOPED SEVERE C DIFF' Objective - Vital Signs/Intake and Output Vital Signs (last 24 hours): Temp Pulse Resp BP Pulse Ox 97.1 F L 68 28 H 143/72 100 07/13/16 12:00 07/13/16 12:02 07/13/16 12:02 07/13/16 12:03 07/13/16 08:00 Intake and Output: 07/13/16 07/13/16 06:59 18:59 Output Total 200 Balance -200 - Medications Medications: Current Medications Acetaminophen (Tylenol 325mg Tab) 650 mg PO Q6 PRN PRN Reason: Pain, Mild (1-3) Last Admin: 07/12/16 18:01 Dose: 650 mg Alprazolam (Xanax) 0.25 mg PO HS PRN PRN Reason: Anxiety Stop: 07/19/16 20:55 Last Admin: 07/12/16 22:00 Dose: 0.25 mg Amlodipine Besylate (Norvasc) 10 mg PO DAILY [facility] Last Admin: 07/13/16 09:28 Dose: 10 mg Hydrochlorothiazide (Hydrodiuril) 25 mg PO DAILY [facility] Last Admin: 07/13/16 09:26 Dose: 25 mg Hydrocortisone (Anusol-Hc) 25 mg RC BID [facility] Last Admin: 07/13/16 09:26 Dose: 25 mg Metronidazole (Flagyl) 500 mg in 100 mls @ 100 mls/hr IVPB Q8H [facility] Last Admin: 07/13/16 15:04 Dose: 100 mls/hr Ibuprofen (Motrin Tab) 400 mg PO Q12 [facility] Last Admin: 07/13/16 09:26 Dose: 400 mg Metoprolol Succinate (Toprol Xl) 50 mg PO DAILY [facility] Last Admin: 07/13/16 09:28 Dose: 50 mg Pantoprazole Sodium (Protonix Ec Tab) 40 mg PO DAILY [facility] Last Admin: 07/13/16 09:28 Dose: 40 mg Rosuvastatin Calcium (Crestor) 20 mg PO HS [facility] Last Admin: 07/12/16 22:00 Dose: 20 mg Vancomycin HCl (Vancocin (Oral Or Rectal Use)) 250 mg PO QID [facility] Last Admin: 07/13/16 13:05 Dose: 250 mg - Labs Labs: 07/13/16 06:08 07/11/16 08:03 PT 11.5 SECONDS (9.7-12.2) 07/11/16 08:03 INR 1.0 07/11/16 08:03 - Constitutional Appears: Non-toxic, Cachectic, Chronically Ill - Head Exam Head Exam: NORMOCEPHALIC - Eye Exam Eye Exam: PERRL. absent: Scleral icterus - ENT Exam ENT Exam: Mucous Membranes Dry - Neck Exam Neck Exam: absent: Lymphadenopathy - Respiratory Exam Respiratory Exam: Decreased Breath Sounds - Cardiovascular Exam Cardiovascular Exam: REGULAR RHYTHM - GI/Abdominal Exam GI & Abdominal Exam: Distended, Soft. absent: Tenderness - Rectal Exam Rectal Exam: Deferred - Extremities Exam Extremities Exam: absent: Calf Tenderness, Pedal Edema Assessment and Plan (1) Hemorrhoids Status: Acute (2) Rectal bleed Status: Acute (3) Clostridium difficile colitis Status: Acute (4) Clostridium difficile colitis Status: Acute
--- NOTE | 2016-07-13 18:19 | CP.PCM.PN ---
Subjective - Date & Time of Evaluation Date of Evaluation: 07/13/16 Time of Evaluation: 15:20 - Subjective Subjective: clinically same Objective - Vital Signs/Intake and Output Vital Signs (last 24 hours): Temp Pulse Resp BP Pulse Ox 97.7 F 63 32 H 126/66 100 07/13/16 16:00 07/13/16 16:14 07/13/16 16:14 07/13/16 16:14 07/13/16 08:00 Intake and Output: 07/13/16 07/13/16 06:59 18:59 Output Total 200 Balance -200 - Medications Medications: Current Medications Acetaminophen (Tylenol 325mg Tab) 650 mg PO Q6 PRN PRN Reason: Pain, Mild (1-3) Last Admin: 07/12/16 18:01 Dose: 650 mg Alprazolam (Xanax) 0.25 mg PO HS PRN PRN Reason: Anxiety Stop: 07/19/16 20:55 Last Admin: 07/12/16 22:00 Dose: 0.25 mg Amlodipine Besylate (Norvasc) 10 mg PO DAILY [facility] Last Admin: 07/13/16 09:28 Dose: 10 mg Hydrochlorothiazide (Hydrodiuril) 25 mg PO DAILY [facility] Last Admin: 07/13/16 09:26 Dose: 25 mg Hydrocortisone (Anusol-Hc) 25 mg RC BID [facility] Last Admin: 07/13/16 17:04 Dose: 25 mg Metronidazole (Flagyl) 500 mg in 100 mls @ 100 mls/hr IVPB Q8H [facility] Last Admin: 07/13/16 15:04 Dose: 100 mls/hr Ibuprofen (Motrin Tab) 400 mg PO Q12 [facility] Last Admin: 07/13/16 09:26 Dose: 400 mg Metoprolol Succinate (Toprol Xl) 50 mg PO DAILY [facility] Last Admin: 07/13/16 09:28 Dose: 50 mg Pantoprazole Sodium (Protonix Ec Tab) 40 mg PO DAILY [facility] Last Admin: 07/13/16 09:28 Dose: 40 mg Rosuvastatin Calcium (Crestor) 20 mg PO HS [facility] Last Admin: 07/12/16 22:00 Dose: 20 mg Vancomycin HCl (Vancocin (Oral Or Rectal Use)) 250 mg PO QID [facility] Last Admin: 07/13/16 17:05 Dose: 250 mg - Labs Labs: 07/13/16 06:08 07/11/16 08:03 PT 11.5 SECONDS (9.7-12.2) 07/11/16 08:03 INR 1.0 07/11/16 08:03 - Constitutional Appears: Well - Head Exam Head Exam: ATRAUMATIC, NORMAL INSPECTION, NORMOCEPHALIC - Eye Exam Eye Exam: EOMI, Normal appearance, PERRL Pupil Exam: NORMAL ACCOMODATION, PERRL - ENT Exam ENT Exam: Mucous Membranes Moist, Normal Exam - Neck Exam Neck Exam: Full ROM, Normal Inspection. absent: Lymphadenopathy - Respiratory Exam Respiratory Exam: Decreased Breath Sounds - Cardiovascular Exam Cardiovascular Exam: REGULAR RHYTHM, +S1, +S2 - GI/Abdominal Exam GI & Abdominal Exam: Soft, Diminished Bowel Sounds - Rectal Exam Rectal Exam: Deferred Assessment and Plan (1) Clostridium difficile colitis Status: Acute (2) Clostridium difficile colitis Status: Acute (3) GI bleed Status: Acute (4) Hemorrhoids Status: Acute (5) Rectal bleed Status: Acute - Assessment and Plan (Free Text) Plan: Follow-up GI Follow-up ID Continue Flagyl Continue vancomycin Protonix Crestor
[2016-07-14] MEDS: metroNIDAZOLE IV 500 mg/100 ml 500 MG/100 ML BAG IVPB SCH ×3 (07:38→23:44)
--- NOTE | 2016-07-14 09:21 | CP.PCM.PN ---
Subjective - Date & Time of Evaluation Date of Evaluation: 07/14/16 Time of Evaluation: 13:40 - Subjective Subjective: clinically same Objective - Vital Signs/Intake and Output Vital Signs (last 24 hours): Temp Pulse Resp BP Pulse Ox 98.8 F 77 20 160/55 H 97 07/14/16 04:00 07/14/16 00:00 07/14/16 00:00 07/14/16 00:00 07/14/16 00:00 - Medications Medications: Current Medications Acetaminophen (Tylenol 325mg Tab) 650 mg PO Q6 PRN PRN Reason: Pain, Mild (1-3) Last Admin: 07/12/16 18:01 Dose: 650 mg Alprazolam (Xanax) 0.25 mg PO HS PRN PRN Reason: Anxiety Stop: 07/19/16 20:55 Last Admin: 07/12/16 22:00 Dose: 0.25 mg Amlodipine Besylate (Norvasc) 10 mg PO DAILY [facility] Last Admin: 07/13/16 09:28 Dose: 10 mg Hydrochlorothiazide (Hydrodiuril) 25 mg PO DAILY [facility] Last Admin: 07/13/16 09:26 Dose: 25 mg Hydrocortisone (Anusol-Hc) 25 mg RC BID [facility] Last Admin: 07/13/16 17:04 Dose: 25 mg Metronidazole (Flagyl) 500 mg in 100 mls @ 100 mls/hr IVPB Q8H [facility] Last Admin: 07/14/16 07:38 Dose: 100 mls/hr Ibuprofen (Motrin Tab) 400 mg PO Q12 [facility] Last Admin: 07/13/16 21:54 Dose: 400 mg Metoprolol Succinate (Toprol Xl) 50 mg PO DAILY [facility] Last Admin: 07/13/16 09:28 Dose: 50 mg Pantoprazole Sodium (Protonix Ec Tab) 40 mg PO DAILY [facility] Last Admin: 07/13/16 09:28 Dose: 40 mg Rosuvastatin Calcium (Crestor) 20 mg PO HS [facility] Last Admin: 07/13/16 21:56 Dose: 20 mg Vancomycin HCl (Vancocin (Oral Or Rectal Use)) 250 mg PO QID [facility] Last Admin: 07/13/16 21:53 Dose: 250 mg - Labs Labs: 07/13/16 06:08 07/11/16 08:03 PT 11.5 SECONDS (9.7-12.2) 07/11/16 08:03 INR 1.0 07/11/16 08:03 - Constitutional Appears: Well - Head Exam Head Exam: ATRAUMATIC, NORMAL INSPECTION, NORMOCEPHALIC - Eye Exam Eye Exam: EOMI, Normal appearance, PERRL Pupil Exam: NORMAL ACCOMODATION, PERRL - ENT Exam ENT Exam: Mucous Membranes Moist, Normal Exam - Neck Exam Neck Exam: Full ROM, Normal Inspection. absent: Lymphadenopathy - Respiratory Exam Respiratory Exam: Decreased Breath Sounds - Cardiovascular Exam Cardiovascular Exam: REGULAR RHYTHM, +S1, +S2 - GI/Abdominal Exam GI & Abdominal Exam: Soft, Diminished Bowel Sounds - Rectal Exam Rectal Exam: Deferred Assessment and Plan (1) Clostridium difficile colitis Status: Acute (2) Clostridium difficile colitis Status: Acute (3) GI bleed Status: Acute (4) Hemorrhoids Status: Acute (5) Rectal bleed Status: Acute - Assessment and Plan (Free Text) Plan: Follow-up GI Follow-up ID Continue Flagyl Continue vancomycin Protonix Crestor Follow-up with labs
[2016-07-14] MEDS: Metoprolol Succinate 50 mg XL Tab PO SCH (09:28)
[2016-07-14] MEDS: Pantoprazole 40 mg EC Tab PO SCH (09:29)
[2016-07-14] MEDS: Vancomycin 125 MG/5 ML SOLN (ORAL/RECTAL) PO SCH ×4 (09:32→21:41)
[2016-07-14 15:57] VITALS: RESP 20
[2016-07-14 22:35] LABS: POTASSIUM 2.8 mmol/L (3.6-5.2)
[2016-07-14 22:37] LABS: BILIRUBIN,TOTAL 0.6 mg/dL (0.2-1.3); TOTAL PROTEIN 6.6 g/dL (6.3-8.3)
[2016-07-14 22:38] LABS: CALCIUM 8.2 mg/dl (8.6-10.4)
[2016-07-15] MEDS ORDERED: Potassium Chloride 20 mEq ER Tab PO STA (07:29)
--- NOTE | 2016-07-15 10:17 | CP.PCM.PN ---
Subjective - Date & Time of Evaluation Date of Evaluation: 07/15/16 Time of Evaluation: 11:20 - Subjective Subjective: clinically same Objective - Vital Signs/Intake and Output Vital Signs (last 24 hours): Temp Pulse Resp BP Pulse Ox 99 F 83 20 135/72 96 07/15/16 09:56 07/15/16 09:56 07/15/16 09:56 07/15/16 09:56 07/15/16 09:56 - Medications Medications: Current Medications Acetaminophen (Tylenol 325mg Tab) 650 mg PO Q6 PRN PRN Reason: Pain, Mild (1-3) Last Admin: 07/12/16 18:01 Dose: 650 mg Alprazolam (Xanax) 0.25 mg PO HS PRN PRN Reason: Anxiety Stop: 07/19/16 20:55 Last Admin: 07/12/16 22:00 Dose: 0.25 mg Amlodipine Besylate (Norvasc) 10 mg PO DAILY ON LICENSE OF [facility] Last Admin: 07/14/16 09:28 Dose: 10 mg Hydrochlorothiazide (Hydrodiuril) 25 mg PO DAILY ON LICENSE OF [facility] Last Admin: 07/14/16 09:28 Dose: 25 mg Hydrocortisone (Anusol-Hc) 25 mg RC BID ON LICENSE OF [facility] Last Admin: 07/14/16 18:47 Dose: 25 mg Metronidazole (Flagyl) 500 mg in 100 mls @ 100 mls/hr IVPB Q8H ON LICENSE OF [facility] Last Admin: 07/14/16 23:44 Dose: 100 mls/hr Potassium Chloride (Potassium Chloride 20 Meq/100 Ml) 20 meq in 100 mls @ 50 mls/hr IVPB Q2 ON LICENSE OF [facility] Stop: 07/15/16 11:59 Last Admin: 07/15/16 08:04 Dose: 50 mls/hr Ibuprofen (Motrin Tab) 400 mg PO Q12 ON LICENSE OF [facility] Last Admin: 07/14/16 21:40 Dose: 400 mg Metoprolol Succinate (Toprol Xl) 50 mg PO DAILY ON LICENSE OF [facility] Last Admin: 07/14/16 09:28 Dose: 50 mg Pantoprazole Sodium (Protonix Ec Tab) 40 mg PO DAILY ON LICENSE OF [facility] Last Admin: 07/14/16 09:29 Dose: 40 mg Rosuvastatin Calcium (Crestor) 10 mg PO HS ON LICENSE OF [facility] Vancomycin HCl (Vancocin (Oral Or Rectal Use)) 250 mg PO QID ON LICENSE OF [facility] Last Admin: 07/14/16 21:41 Dose: 250 mg - Labs Labs: 07/13/16 06:08 07/14/16 22:09 PT 11.5 SECONDS (9.7-12.2) 07/11/16 08:03 INR 1.0 07/11/16 08:03 - Constitutional Appears: Well - Head Exam Head Exam: ATRAUMATIC, NORMAL INSPECTION, NORMOCEPHALIC - Eye Exam Eye Exam: EOMI, Normal appearance, PERRL Pupil Exam: NORMAL ACCOMODATION, PERRL - ENT Exam ENT Exam: Mucous Membranes Moist, Normal Exam - Neck Exam Neck Exam: Full ROM, Normal Inspection. absent: Lymphadenopathy - Respiratory Exam Respiratory Exam: Decreased Breath Sounds - Cardiovascular Exam Cardiovascular Exam: REGULAR RHYTHM, +S1, +S2 - GI/Abdominal Exam GI & Abdominal Exam: Soft, Diminished Bowel Sounds - Rectal Exam Rectal Exam: Deferred Assessment and Plan (1) Clostridium difficile colitis Status: Acute (2) Clostridium difficile colitis Status: Acute (3) GI bleed Status: Acute (4) Hemorrhoids Status: Acute (5) Rectal bleed Status: Acute - Assessment and Plan (Free Text) Plan: Patient is stable for discharge home today with Flagyl Follow-up with me at office in the next 3-5 days Repeat stool culture negative for 3 times for C diff
[2016-07-15] MEDS: metroNIDAZOLE IV 500 mg/100 ml 500 MG/100 ML BAG IVPB SCH ×2 (10:37→15:47)
[2016-07-15] MEDS: Vancomycin 125 MG/5 ML SOLN (ORAL/RECTAL) PO SCH ×2 (11:45→13:54)
[2016-07-15] MEDS: Pantoprazole 40 mg EC Tab PO SCH (11:45)
[2016-07-15] MEDS: Metoprolol Succinate 50 mg XL Tab PO SCH (11:46)
[2016-07-15 15:04] LABS: POTASSIUM 3.5 mmol/L (3.6-5.2)
[2016-07-15 15:08] LABS: CALCIUM 8.3 mg/dl (8.6-10.4)
[2016-07-15 15:42] VITALS: BP 124/72; PULSE 73; TEMP 97.6; O2SAT 97
--- NOTE | 2016-07-15 16:58 | CP.PCM.PN ---
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 Dl HOLLOWAY STABLE FOR DISCHARGE HOME TODAY WITH FLAGYL AND F/U WITH HIS OFFICE IN 3-5 DAYS DISCHARGE PLAN DISCUSSED WITH PATIENT WHO UNDERSTANDS AND AGREES WITH PLAN Objective - Vital Signs/Intake and Output Vital Signs (last 24 hours): Temp Pulse Resp BP Pulse Ox 97.6 F 73 20 124/72 97 07/15/16 15:39 07/15/16 15:39 07/15/16 15:39 07/15/16 15:39 07/15/16 15:39 Intake and Output: 07/15/16 07/15/16 06:59 18:59 Intake Total 600 Balance 600 - Medications Medications: Current Medications Acetaminophen (Tylenol 325mg Tab) 650 mg PO Q6 PRN PRN Reason: Pain, Mild (1-3) Last Admin: 07/12/16 18:01 Dose: 650 mg Alprazolam (Xanax) 0.25 mg PO HS PRN PRN Reason: Anxiety Stop: 07/19/16 20:55 Last Admin: 07/12/16 22:00 Dose: 0.25 mg Amlodipine Besylate (Norvasc) 10 mg PO DAILY [facility] Last Admin: 07/15/16 11:45 Dose: 10 mg Hydrochlorothiazide (Hydrodiuril) 25 mg PO DAILY [facility] Last Admin: 07/15/16 11:45 Dose: 25 mg Hydrocortisone (Anusol-Hc) 25 mg RC BID [facility] Last Admin: 07/15/16 11:35 Dose: Not Given Metronidazole (Flagyl) 500 mg in 100 mls @ 100 mls/hr IVPB Q8H [facility] Last Admin: 07/15/16 15:47 Dose: 100 mls/hr Ibuprofen (Motrin Tab) 400 mg PO Q12 [facility] Last Admin: 07/15/16 11:46 Dose: 400 mg Metoprolol Succinate (Toprol Xl) 50 mg PO DAILY [facility] Last Admin: 07/15/16 11:46 Dose: 50 mg Pantoprazole Sodium (Protonix Ec Tab) 40 mg PO DAILY [facility] Last Admin: 07/15/16 11:45 Dose: 40 mg Rosuvastatin Calcium (Crestor) 10 mg PO HS [facility] Vancomycin HCl (Vancocin (Oral Or Rectal Use)) 250 mg PO QID [facility] Last Admin: 07/15/16 13:54 Dose: 250 mg - Labs Labs: 07/13/16 06:08 07/15/16 14:14 PT 11.5 SECONDS (9.7-12.2) 07/11/16 08:03 INR 1.0 07/11/16 08:03
--- NOTE | 2016-09-01 21:22 | CARD ---
APPROVED REPORT EKG Measurement Heart [id number] <Conclusion> Sinus rhythm with premature supraventricular complexes Nonspecific ST and T wave abnormality Abnormal ECG
== END 2016-07-15 17:40 | disposition home or self-care (01) | DRG 394 ==
LOC: C.ER 14:21 → C.9E 15:40 → C.9I 22:26 → C.5T 07-14 12:02
PROVIDERS: ADMIT Internal Medicine Nephrology; ATTEND Internal Medicine Nephrology
DX: K64.4 Residual hemorrhoidal skin tags (principal); A04.7 Enterocolitis due to Clostridium difficile; R15.9 Full incontinence of feces; I10 Essential (primary) hypertension; E78.5 Hyperlipidemia, unspecified; E78.00 Pure hypercholesterolemia, unspecified; K59.00 Constipation, unspecified; Z96.652 Presence of left artificial knee joint; Z88.0 Allergy status to penicillin; I16.0 Hypertensive urgency; J11.1 Influenza due to unidentified influenza virus with other respiratory manifestations